=== PATIENT | female | born 1955 | race Caucasian/White ===

== ENCOUNTER 2017-06-01 20:55 | Inpatient (IN) ==
[2017-06-01] MEDS ORDERED: KETOROLAC 30 MG/1 ML VIAL IV STA (21:31)
[2017-06-01] MEDS ORDERED: SULFAMETHOX/TRIMETHOPRIM 800-160 MG TABLET PO STA (21:31)
[2017-06-01] MEDS ORDERED: CLINDAMYCIN INJ 900 MG in PREMIX 1 EACH IV STA (21:31)
--- NOTE | 2017-06-01 21:35 | Emergency Department Note ---
Arrival - Arrival Chief Complaint: Extremity Problem Stated Complaint: diabetic foot hurting red with infection ED Nursing Triage Note: C/O Pain and redness to right foot x 2-3 days. Pt states that she thinks she has an infection due to diabetes in her foot. FSG 300 at time of triage- pt states that her blood sugar is always poorly controlled. Pt just moved here 3 weeks ago and does not have established PCP yet Mode of Arrival: Wheelchair Limitations: No Limitations Source: Patient Time Seen by Provider: 06/01/17 21:30 - History of Present Illness HPI Narrative: This 62-year-old white female diabetic new to the area presents with a 3 day history of redness and tenderness of the volar surface of the right foot associated with elevated blood sugars. Patient denies any areas of specific skin breakdown or ulceration. She does have a small ulceration on the tip of the left great toe however. She denies any chills or fever in association with this episode. She does have a history of both diabetic gastroparesis as well as diabetic neuropathy but has had all toes removed from the right foot in the past. Currently she appears in no acute medical distress. Onset (ago): day(s) (Patient presents 3 days post onset of symptoms) Date of Last Menstrual Period: PM Allergies/Adverse Reactions: Allergies Allergy/AdvReac Type Severity Reaction Status Date / Time No Known Allergies Allergy Verified 06/01/17 21:05 Home Medications: Home Medications Medication Instructions Recorded Confirmed Type Aspirin/Caffein/Dihydrocodeine 1 each PO BID 06/01/17 06/01/17 History [Kjijyts-Rnmi-Msnpwziqvtnxw Cap] Buspirone HCl 10 mg PO BID 06/01/17 06/01/17 History Canagliflozin [Invokana] 300 mg PO DAILY 06/01/17 06/01/17 History Citalopram [CeleXA] 20 mg PO DAILY 06/01/17 06/01/17 History Esomeprazole Magnesium 40 mg PO DAILY 06/01/17 06/01/17 History [Esomeprazole] Insulin Aspart [NovoLOG] 12 unit SUBCUT QAM 06/01/17 06/01/17 History Insulin Aspart [NovoLOG] 14 unit SUBCUT DAILY 06/01/17 06/01/17 History Insulin Aspart [NovoLOG] 16 unit SUBCUT QPM 06/01/17 06/01/17 History Insulin Glargine [Lantus] 46 unit SUBCUT BEDTIME 06/01/17 06/01/17 History Isosorbide Mononitrate 10 mg PO BID 06/01/17 06/01/17 History Levothyroxine Tab [Synthroid Tab] 50 mcg PO DAILY@0700 06/01/17 06/01/17 History Metformin HCl 1,000 mg PO BID 06/01/17 06/01/17 History Methocarbamol Tab [Robaxin Tab] 750 mg PO BID 06/01/17 06/01/17 History Metoclopramide Tab [Reglan Tab] 10 mg PO ACHS 06/01/17 06/01/17 History Pregabalin [Lyrica] 75 mg PO BID 06/01/17 06/01/17 History Rosuvastatin [Crestor] 20 mg PO BEDTIME 06/01/17 06/01/17 History Valsartan [Diovan] 160 mg PO DAILY 06/01/17 06/01/17 History hydroCHLOROthiazide 12.5 mg PO DAILY 06/01/17 06/01/17 History [Hydrochlorothiazide] Review of System - Review of System 12 point system: reviewed and no additional remarkable complaints except as stated - Review of System Constitutional: Present: as per HPI Gastrointestinal: Present: as per HPI Musculoskeletal: Present: as per HPI Skin: Present: as per HPI Endocrine: Present: as per HPI Medical,Surgical,& Family Hx - Medical History Cardio: History of: Hypertension Endocrine: History of: Diabetes Mellitus (IDDM), Dyslipidemia - Social History Smoking Status: Never smoker Frequency of Alcohol Use: None Type of Drug Use: None Exam Physical Examination: GENERAL: Obese white female in no acute distress. HEENT: Normocephalic. No trauma. Moist mucous membranes. EOMI. PERRLA. ENT NML NECK: Supple. No adenopathy. CARDIAC: Regular. No murmurs. Heart 100 CHEST: Clear to auscultation. No respiratory distress. O2 sat 94% ABDOMEN: Soft. Nontender. Active bowel sounds. EXTREMITIES: No trauma. Normal ROM. No pedal edema. Red warm tender volar surface of the right foot with minimal swelling locally SKIN: No diaphoresis. No rash. Small ulceration tip of left great toe with no discharge NEURO: Alert. Neuro intact. No focal deficits. Vital Signs: Vital Signs Temperature 98.9 F 06/01/17 21:11 Pulse Rate 101 H 06/01/17 21:11 Respiratory Rate 16 06/01/17 21:11 Blood Pressure 137/84 06/01/17 21:11 O2 Sat by Pulse Oximetry 94 L 06/01/17 21:11 Course - Reevaluation(s) Reevaluation #1: Advised patient and family of need for hospitalization given her laboratory results and her labile sugars at this time. - Consultations Consultation #1: Discussed with hospitalist service who will admit for further evaluation treatment. Results - Labs CBC & BMP: 06/01/17 21:57 06/01/17 21:57 Labs: I have reviewed the laboratory noted the elevated white blood cell count, blood glucose, and elevated C-reactive protein. - Diagnostic Findings Procedure: X-ray: image reviewed by me, report reviewed by me (Right foot: Absent of toes noted with no evidence of active osteomyelitis.) Disposition Clinical Impression: Right diabetic stump, Left diabetic toe Case discussed with: patient, patient's family Disposition: Still a Patient Condition: Guarded Time of Disposition: 23:24
[2017-06-01] MEDS ORDERED: SULFAMETHOX/TRIMETHOPRIM 800-160 MG TABLET ONE (21:51)
[2017-06-01] MEDS ORDERED: KETOROLAC 30 MG/1 ML VIAL ONE (21:51)
[2017-06-01] MEDS ORDERED: CLINDAMYCIN INJ 50 ML IV ONE (21:51)
[2017-06-01 22:26] LABS: Basophils # 0.1 10*3/uL (0.0-0.2); Basophils % 0.4 % (0.0-0.8); Eosinophils # 0.1 10*3/uL (0.0-0.87); Eosinophils % 0.5 % (0.00-10.9); Hematocrit 37.3 VOL% (35.7-47.0); Hemoglobin 12.9 GM/DL (12.0-16.0); Immature Granulocytes % 0.5 %; Immature Granulocytes Absolute 0.07 #; Lymphocytes # 2.2 10*3/uL (1.4-4.0); Lymphocytes % 13.9 % (21.3-54.2); Mean Corpuscular HGB Conc 34.6 GM/DL (32-36); Mean Corpuscular Hemoglobin 31 PG (27-34); Mean Corpuscular Volume 90.8 FL (87-102); Mean Platelet Volume 10.1 FL (9.6-12.0); Monocytes # 1.4 10*3/uL (0.11-0.8); Monocytes % 8.9 % (1.7-12.7); Neutrophils # 11.8 10*3/uL (1.4-7.4); Neutrophils % 75.8 % (38.7-73.9); Platelet Count 234 T/CUMM (130-400); Red Blood Count 4.11 MC/CUMM (3.8-5.5); Red Cell Distribution Width 12.9 % (9.3-17.3); White Blood Count 15.5 T/CUMM (4-12)
[2017-06-01 22:47] LABS: PT Patient Result 10.7 SECS
[2017-06-01 22:50] LABS: Albumin 3.5 G/DL (3.4-5.0); Bilirubin,Total 0.4 MG/DL (0.2-1.0); Calcium 9.7 MG/DL (8.5-10.1); Potassium 4.4 MMOL/L (3.5-5.1); Total Protein 7.1 G/DL (6.4-8.3)
[2017-06-01] MEDS ORDERED: ONDANSETRON 4 MG/2 ML VIAL IV PRN (23:15)
[2017-06-01] MEDS ORDERED: GLUCAGON 1 MG VIAL IM PRN (23:15)
[2017-06-01] MEDS ORDERED: ACETAMINOPHEN 325 MG TABLET PO PRN (23:15)
[2017-06-01] MEDS ORDERED: DEXTROSE 50% 25 GM/50 ML SYRINGE IV PRN (23:15)
[2017-06-01 23:32] LABS: Sedimentation Rate-Westergren 75 MM/HR (0-30)
--- NOTE | 2017-06-01 23:56 | Hospitalist History & Physical ---
Assessment and Plan (1) Cellulitis Status: Acute Current Visit: Yes (2) Diabetes Status: Acute Current Visit: Yes (3) Hypertension Status: Acute Current Visit: Yes (4) Leukocytosis Status: Acute Assessment and plan: For this patient will go to admit her to our service. We will continue home meds as appropriate started on IV antibiotics. Will consult wound care to evaluate her. Monitor her sugars before meals and at bedtime. Continue her Lantus will add sliding scale also. Check an A1c on her. Patient needs referral to a physician upon discharge. She is new to the area and has been here approximately 3 weeks. Current Visit: Yes History of Present Illness Chief complaint: Cellulitis History of present illness: Ms. Bell is a 62 year old female with past medical history of diabetes, TIA, coronary artery disease, increased cholesterol, reflux, hypertension and legal blindness who was in her normal state of health until the past couple days. Patient notes that her left foot was getting puffy yesterday. Today she noticed that it had turned red. She has had cellulitis before and got concerned that that is always occurring now she came to our hospital for further evaluation. This occurred on her right foot for which she has no natural toes. She denies any fever or chills associated with this. She is in no acute distress and I was consulted to admit her to the emergency room. Home Medications Medication Instructions Recorded Confirmed Type Aspirin/Caffein/Dihydrocodeine 1 each PO BID 06/01/17 06/01/17 History [Iwpduqe-Ctrw-Opfjdqdjzdfhj Cap] Buspirone HCl 10 mg PO BID 06/01/17 06/01/17 History Canagliflozin [Invokana] 300 mg PO DAILY 06/01/17 06/01/17 History Citalopram [CeleXA] 20 mg PO DAILY 06/01/17 06/01/17 History Esomeprazole Magnesium 40 mg PO DAILY 06/01/17 06/01/17 History [Esomeprazole] Insulin Aspart [NovoLOG] 12 unit SUBCUT QAM 06/01/17 06/01/17 History Insulin Aspart [NovoLOG] 14 unit SUBCUT DAILY 06/01/17 06/01/17 History Insulin Aspart [NovoLOG] 16 unit SUBCUT QPM 06/01/17 06/01/17 History Insulin Glargine [Lantus] 46 unit SUBCUT BEDTIME 06/01/17 06/01/17 History Isosorbide Mononitrate 10 mg PO BID 06/01/17 06/01/17 History Levothyroxine Tab [Synthroid Tab] 50 mcg PO DAILY@0700 06/01/17 06/01/17 History Metformin HCl 1,000 mg PO BID 06/01/17 06/01/17 History Methocarbamol Tab [Robaxin Tab] 750 mg PO BID 06/01/17 06/01/17 History Metoclopramide Tab [Reglan Tab] 10 mg PO ACHS 06/01/17 06/01/17 History Pregabalin [Lyrica] 75 mg PO BID 06/01/17 06/01/17 History Rosuvastatin [Crestor] 20 mg PO BEDTIME 06/01/17 06/01/17 History Valsartan [Diovan] 160 mg PO DAILY 06/01/17 06/01/17 History hydroCHLOROthiazide 12.5 mg PO DAILY 06/01/17 06/01/17 History [Hydrochlorothiazide] Allergies Allergy/AdvReac Type Severity Reaction Status Date / Time No Known Allergies Allergy Verified 06/01/17 21:05 Medical,Surgical,& Family Hx - Medical History Cardio: History of: Hypertension Endocrine: History of: Diabetes Mellitus (IDDM), Dyslipidemia - Surgical History Orthopedic Surgeries: Surgical HX of;: Orthopedic Surgery - Family History Family History: Reports;: Family Cancer, Family Diabetes, Family Heart Disease, Family Hypertension, Family Stroke - Social History Smoking Status: Never smoker Frequency of Alcohol Use: None Type of Drug Use: None 12 point system: reviewed and no additional remarkable complaints except as stated Exam - Constitutional Vitals: Period Temp Pulse Resp BP Sys/Holcomb Pulse Ox Last 24 Hr 98.9 F 98-101 16-20 136-137/72-84 90-94 General appearance: normal weight - Head Head exam: Present: normal inspection - Eye Eye exam: Present: EOMI, other (Patient is legally blind) Pupils: Present: KAREN - ENT ENT exam: Present: normal exam - Neck Neck exam: Present: normal inspection - Respiratory Respiratory exam: Present: clear to auscultation bilaterally - Cardiovascular Cardiovascular exam: Present: regular rate and rhythm - GI/Abdominal GI/Abdominal exam: Present: normal bowel sounds - Extremities Exam Extremities exam: Present: other (Patient's right foot is erythematous consistent with cellulitis. It is tender with some swelling. There is some ulceration on her left great toe noted.) - Back Exam Back exam: Present: normal inspection - Neurological Exam Neurological exam: Present: alert, oriented X3 - Psychiatric Psychiatric exam: Present: normal affect, normal mood - Skin Skin exam: Present: erythema Results - Labs CBC & BMP: 06/01/17 21:57 06/01/17 21:57
[2017-06-02] MEDS: CEFTAROLINE 600 MG in SODIUM CHLORIDE 0.9% 100 ML IV SCH ×2 (00:55→12:12)
[2017-06-02] MEDS ORDERED: INSULIN REGULAR 100 UNIT/ML SUBCUT ONE (01:11)
[2017-06-02 02:40] LABS: Barbiturates Screen,Urine Negative (Negative); Benzodiazepines Screen,Urine Negative (Negative); Cannabinoid Screen,Urine Negative (Negative); Opiate Screen,Urine Negative (Negative); Phencyclidine Screen,Urine Negative (Negative)
[2017-06-02 05:16] LABS: Basophils % 0.3 % (0.0-0.8); Eosinophils # 0.1 10*3/uL (0.0-0.87); Eosinophils % 0.6 % (0.00-10.9); Hematocrit 33.6 VOL% (35.7-47.0); Hemoglobin 11.4 GM/DL (12.0-16.0); Immature Granulocytes % 0.3 %; Immature Granulocytes Absolute 0.04 #; Lymphocytes # 2.6 10*3/uL (1.4-4.0); Lymphocytes % 21.1 % (21.3-54.2); Mean Corpuscular HGB Conc 33.9 GM/DL (32-36); Mean Corpuscular Hemoglobin 31 PG (27-34); Mean Corpuscular Volume 90.8 FL (87-102); Monocytes # 1.2 10*3/uL (0.11-0.8); Monocytes % 9.6 % (1.7-12.7); Neutrophils # 8.4 10*3/uL (1.4-7.4); Neutrophils % 68.1 % (38.7-73.9); Platelet Count 211 T/CUMM (130-400); White Blood Count 12.4 T/CUMM (4-12)
[2017-06-02 05:59] LABS: Albumin 2.8 G/DL (3.4-5.0); Bilirubin,Total 0.5 MG/DL (0.2-1.0); Calcium 9.6 MG/DL (8.5-10.1); Osmolality,Calculated 293.4 MOS/KG (273-304); Potassium 3.7 MMOL/L (3.5-5.1); Total Protein 6.1 G/DL (6.4-8.3)
[2017-06-02] MEDS: LEVOTHYROXINE 50 MCG TABLET PO SCH (06:04)
--- NOTE | 2017-06-02 08:09 | XRay Report ---
Exam: XR foot 3V BI Date: 06/01/2017 9:32 PM Comparison: None Indication: Foot pain Technique:[AP, lateral oblique, and lateral bilateral feet] Findings: Soft tissue swelling especially in the right foot with prior amputation at the level of the MTP joints. Chronic deformity of the remaining distal second and third metatarsals with surgical bone loss. Sclerosis with osteophytes including calcaneal osteophyte at plantar fascial insertion. In the left foot, postoperative findings are noted medially with metallic compression plate and screws with fusion of the first metatarsal and the medial tarsal bones. The left toes are bent. No acute fracture or significant periosteal thickening. Impression: Soft tissue swelling especially in the right foot with prior amputation of the toes and additional postoperative findings in the medial left foot. Osteopenia with degenerative changes. No acute fracture or significant periosteal thickening. Left claw toe deformity. PROCEDURE INTERPRETED AT [facility] DEPARTMENT OF RADIOLOGY Final Report Signed by: Dr. Moon Hines
[2017-06-02] MEDS ORDERED: PANTOPRAZOLE 40 MG TABLET PO SCH (09:00)
[2017-06-02] MEDS: metFORMIN 500 MG TABLET PO SCH ×2 (09:01→21:15)
[2017-06-02] MEDS: hydroCHLOROthiazide 12.5 MG CAPSULE PO SCH (09:01)
[2017-06-02] MEDS: METHOCARBAMOL 750 MG TABLET PO SCH ×2 (09:01→21:15)
[2017-06-02] MEDS: METOCLOPRAMIDE 10 MG TABLET PO SCH ×4 (09:01→21:15)
[2017-06-02] MEDS: CITALOPRAM 20 MG TABLET PO SCH (09:01)
[2017-06-02] MEDS: PREGABALIN 75 MG CAPSULE PO SCH ×2 (09:01→21:14)
[2017-06-02] MEDS: PANTOPRAZOLE 40 MG TABLET PO SCH (09:01)
[2017-06-02] MEDS: INSULIN REGULAR 100 UNIT/ML SUBCUT SCH ×4 (09:02→21:14)
[2017-06-02] MEDS: VALSARTAN 160 MG TABLET PO SCH (09:02)
[2017-06-02] MEDS: busPIRone 10 MG TABLET PO SCH ×2 (09:02→21:15)
[2017-06-02] MEDS: ENOXAPARIN 40 MG/0.4 ML SYRINGE SUBCUT SCH (09:02)
[2017-06-02] MEDS: ISOSORBIDE MONONITRATE 20 MG TABLET PO SCH ×2 (09:02→21:15)
--- NOTE | 2017-06-02 13:59 | Hospitalist Progress Note ---
Assessment and Plan (1) Cellulitis Status: Acute Assessment and plan: Blood cultures 2 pending, continue Teflaro, most likely strep, will need 3 days of IV antibiotic Current Visit: Yes (2) Hypothyroidism Status: Acute Assessment and plan: TSH, continue levothyroxine Current Visit: Yes (3) Gastroparesis Status: Acute Assessment and plan: Continue Reglan Current Visit: Yes (4) Diabetes Status: Acute Assessment and plan: Continue Metformin and Lantus Current Visit: Yes (5) Hypertension Status: Acute Assessment and plan: Continue hydrochlorothiazide, isosorbide mononitrate and Diovan Current Visit: Yes Hospitalist: Subjective Interval history: Patient's got right lower extremity cellulitis she has had amputation of all those toes. Patient may have had a bite there and subsequently became the source of her infection. The infection was rapid within 1 day most likely consistent with strep. Exam - Constitutional Vitals: Period Temp Pulse Resp BP Sys/Holcomb Pulse Ox Last 24 Hr 96.8 F-98.9 F 82-101 16-20 99-156/51-84 89-95 Exam: Heart Rate-[RRR] Lungs-[CTAB] GI-[+bs soft, NT] Ext-[RLE erythema and warm extending from foot mid way up tibia ] Neuro [Motor 5/5], [alert and oriented times 3] psych [normal mood and affect] General [no acute distress] Results - Labs CBC & BMP: 06/02/17 05:00 06/02/17 05:00 Lab Results: I have reviewed the past 24 hour labs - Diagnostic Findings Procedure: X-ray: report reviewed by me (Soft tissue swelling of right foot)
--- NOTE | 2017-06-02 15:42 | XRay Report ---
XR chest 2V Date: 06/02/2017 2:01 PM History: Shortness of breath Comparison: None Technique: PA and lateral chest Findings: The heart is at the upper limits normal in size. Calcified granulomata/nodes with minimal atelectasis. Minimal relative elevation of the right hemidiaphragm. Unremarkable mediastinum with degenerative changes. Impression: Old healed granulomatous disease with minimal atelectasis and relative elevation right hemidiaphragm. PROCEDURE INTERPRETED AT [facility] DEPARTMENT OF RADIOLOGY Final Report Signed by: Dr. Moon Hines
[2017-06-02] MEDS: INSULIN GLARGINE 100 UNIT/ML SUBCUT SCH (21:14)
[2017-06-02] MEDS: ROSUVASTATIN 20 MG TABLET PO SCH (21:15)
[2017-06-03] MEDS: CEFTAROLINE 600 MG in SODIUM CHLORIDE 0.9% 50 ML IV SCH ×2 (00:09→12:08)
[2017-06-03 06:00] LABS: Basophils # 0.1 10*3/uL (0.0-0.2); Basophils % 0.5 % (0.0-0.8); Eosinophils # 0.2 10*3/uL (0.0-0.87); Eosinophils % 2.1 % (0.00-10.9); Hematocrit 34.3 VOL% (35.7-47.0); Hemoglobin 11.6 GM/DL (12.0-16.0); Immature Granulocytes % 0.5 %; Immature Granulocytes Absolute 0.05 #; Lymphocytes % 21.8 % (21.3-54.2); Mean Corpuscular HGB Conc 33.8 GM/DL (32-36); Mean Corpuscular Hemoglobin 31 PG (27-34); Mean Corpuscular Volume 91.2 FL (87-102); Mean Platelet Volume 10.1 FL (9.6-12.0); Monocytes # 1.1 10*3/uL (0.11-0.8); Monocytes % 11.7 % (1.7-12.7); Neutrophils # 5.8 10*3/uL (1.4-7.4); Neutrophils % 63.4 % (38.7-73.9); Platelet Count 222 T/CUMM (130-400); Red Blood Count 3.76 MC/CUMM (3.8-5.5); Red Cell Distribution Width 12.9 % (9.3-17.3); White Blood Count 9.1 T/CUMM (4-12)
[2017-06-03 06:30] LABS: Calcium 9.1 MG/DL (8.5-10.1); Osmolality,Calculated 285.5 MOS/KG (273-304); Potassium 4.1 MMOL/L (3.5-5.1)
[2017-06-03] MEDS: LEVOTHYROXINE 50 MCG TABLET PO SCH (06:52)
[2017-06-03] MEDS: INSULIN REGULAR 100 UNIT/ML SUBCUT SCH ×4 (08:46→21:06)
[2017-06-03] MEDS: VALSARTAN 160 MG TABLET PO SCH (08:48)
[2017-06-03] MEDS: CITALOPRAM 20 MG TABLET PO SCH (08:49)
[2017-06-03] MEDS: metFORMIN 500 MG TABLET PO SCH ×2 (08:49→21:07)
[2017-06-03] MEDS: PREGABALIN 75 MG CAPSULE PO SCH ×2 (08:49→21:07)
[2017-06-03] MEDS: busPIRone 10 MG TABLET PO SCH ×2 (08:49→21:07)
[2017-06-03] MEDS: METOCLOPRAMIDE 10 MG TABLET PO SCH ×4 (08:49→21:07)
[2017-06-03] MEDS: ISOSORBIDE MONONITRATE 20 MG TABLET PO SCH ×2 (08:49→21:07)
[2017-06-03] MEDS: METHOCARBAMOL 750 MG TABLET PO SCH ×2 (08:49→21:07)
[2017-06-03] MEDS: ENOXAPARIN 40 MG/0.4 ML SYRINGE SUBCUT SCH (08:50)
[2017-06-03] MEDS: PANTOPRAZOLE 40 MG TABLET PO SCH (08:50)
[2017-06-03] MEDS: hydroCHLOROthiazide 12.5 MG CAPSULE PO SCH (08:50)
--- NOTE | 2017-06-03 17:29 | Hospitalist Progress Note ---
Assessment and Plan (1) Cellulitis Status: Acute Assessment and plan: Blood cultures 2 pending, continue Teflaro Current Visit: Yes (2) Hypothyroidism Status: Acute Assessment and plan: TSH normal, continue levothyroxine Current Visit: Yes (3) Gastroparesis Status: Acute Assessment and plan: Continue Reglan Current Visit: Yes (4) Diabetes Status: Acute Assessment and plan: Hgb a1c 9.3, Continue Metformin and Lantus and mealtime coverage Current Visit: Yes (5) Hypertension Status: Acute Assessment and plan: Controlled, cont hydrochlorothiazide, isosorbide mononitrate and Diovan Current Visit: Yes Hospitalist: Subjective Interval history: Improving cellulitis in the right lower extremity improving. Exam - Constitutional Vitals: Period Temp Pulse Resp BP Sys/Holcomb Pulse Ox Last 24 Hr 96.6 F-98.9 F 82-97 18-21 96-115/50-72 89-95 Exam: Heart Rate-[RRR] Lungs-[CTAB] GI-[+bs soft, NT] Ext-[RLE erythema and warm improving ] Neuro [Motor 5/5], [alert and oriented times 3] psych [normal mood and affect] General [no acute distress] Results - Labs CBC & BMP: 06/03/17 05:36 06/03/17 05:35 Lab Results: I have reviewed the past 24 hour labs Labs: blood cx pending - Diagnostic Findings Procedure: Chest x-ray: report reviewed by me (negative ) Specialty Discharge - Follow Up or Referrals Follow up with: Kiah Bruno MD [Physician] - (please establish as PCP)
[2017-06-03] MEDS ORDERED: INSULIN ASPART 7 UNIT SUBCUT SCH (19:00)
[2017-06-03] MEDS: INSULIN GLARGINE 100 UNIT/ML SUBCUT SCH (21:06)
[2017-06-03] MEDS: ROSUVASTATIN 20 MG TABLET PO SCH (21:07)
[2017-06-04] MEDS: CEFTAROLINE 600 MG in SODIUM CHLORIDE 0.9% 50 ML IV SCH ×2 (00:44→12:30)
[2017-06-04 06:02] LABS: Basophils # 0.1 10*3/uL (0.0-0.2); Basophils % 0.6 % (0.0-0.8); Eosinophils # 0.2 10*3/uL (0.0-0.87); Eosinophils % 2.9 % (0.00-10.9); Hematocrit 35.5 VOL% (35.7-47.0); Hemoglobin 12.1 GM/DL (12.0-16.0); Immature Granulocytes % 0.5 %; Immature Granulocytes Absolute 0.04 #; Lymphocytes # 2.7 10*3/uL (1.4-4.0); Lymphocytes % 34.5 % (21.3-54.2); Mean Corpuscular HGB Conc 34.1 GM/DL (32-36); Mean Corpuscular Hemoglobin 31 PG (27-34); Mean Corpuscular Volume 90.8 FL (87-102); Mean Platelet Volume 10.3 FL (9.6-12.0); Monocytes # 0.9 10*3/uL (0.11-0.8); Monocytes % 11.7 % (1.7-12.7); Neutrophils # 3.9 10*3/uL (1.4-7.4); Neutrophils % 49.8 % (38.7-73.9); Platelet Count 254 T/CUMM (130-400); Red Blood Count 3.91 MC/CUMM (3.8-5.5); Red Cell Distribution Width 12.5 % (9.3-17.3); White Blood Count 7.8 T/CUMM (4-12)
[2017-06-04] MEDS: LEVOTHYROXINE 50 MCG TABLET PO SCH (06:33)
[2017-06-04] MEDS: INSULIN REGULAR 100 UNIT/ML SUBCUT SCH ×4 (07:48→21:52)
[2017-06-04] MEDS ORDERED: INSULIN ASPART 7 UNIT SUBCUT SCH ×2 (09:00)
[2017-06-04] MEDS: hydroCHLOROthiazide 12.5 MG CAPSULE PO SCH (09:25)
[2017-06-04] MEDS: METHOCARBAMOL 750 MG TABLET PO SCH ×2 (09:25→21:51)
[2017-06-04] MEDS: CITALOPRAM 20 MG TABLET PO SCH (09:25)
[2017-06-04] MEDS: METOCLOPRAMIDE 10 MG TABLET PO SCH ×4 (09:25→21:52)
[2017-06-04] MEDS: metFORMIN 500 MG TABLET PO SCH ×2 (09:25→21:52)
[2017-06-04] MEDS: PREGABALIN 75 MG CAPSULE PO SCH ×2 (09:26→21:51)
[2017-06-04] MEDS: VALSARTAN 160 MG TABLET PO SCH (09:26)
[2017-06-04] MEDS: busPIRone 10 MG TABLET PO SCH ×2 (09:26→21:52)
[2017-06-04] MEDS: ENOXAPARIN 40 MG/0.4 ML SYRINGE SUBCUT SCH (09:26)
[2017-06-04] MEDS: ISOSORBIDE MONONITRATE 20 MG TABLET PO SCH ×2 (09:26→21:51)
[2017-06-04] MEDS: PANTOPRAZOLE 40 MG TABLET PO SCH (09:26)
--- NOTE | 2017-06-04 16:02 | Hospitalist Progress Note ---
Assessment and Plan (1) Cellulitis Status: Acute Assessment and plan: Blood cultures 2 no growth, continue Teflaro Current Visit: Yes (2) Hypothyroidism Status: Acute Assessment and plan: TSH normal, continue levothyroxine Current Visit: Yes (3) Gastroparesis Status: Acute Assessment and plan: Continue Reglan Current Visit: Yes (4) Diabetes Status: Acute Assessment and plan: Hgb a1c 9.3, still not controlled will increase Lantus and mealtime coverage Current Visit: Yes (5) Hypertension Status: Acute Assessment and plan: Controlled, cont hydrochlorothiazide, isosorbide mononitrate and Diovan Current Visit: Yes Hospitalist: Subjective Interval history: Cellulitis is rapidly improving home tomorrow. Exam - Constitutional Vitals: Period Temp Pulse Resp BP Sys/Holcomb Pulse Ox Last 24 Hr 97.5 F-97.9 F 74-88 15-20 98-133/58-66 91-96 Exam: Heart Rate-[RRR] Lungs-[CTAB] GI-[+bs soft, NT] Ext-[RLE resolving rapidly Neuro [Motor 5/5], [alert and oriented times 3] psych [normal mood and affect] General [no acute distress] Results - Labs CBC & BMP: 06/04/17 04:16 06/03/17 05:35 Lab Results: I have reviewed the past 24 hour labs Labs: Blood cultures 2 negative no growth Specialty Discharge - Follow Up or Referrals Follow up with: Kiah Bruno MD [Physician] - (please establish as PCP)
[2017-06-04] MEDS ORDERED: INSULIN GLARGINE 100 UNIT/ML SUBCUT SCH (16:04)
[2017-06-04] MEDS ORDERED: INSULIN ASPART 12 UNIT SUBCUT SCH ×3 (16:04)
[2017-06-04] MEDS: ROSUVASTATIN 20 MG TABLET PO SCH (21:51)
[2017-06-05] MEDS: CEFTAROLINE 600 MG in SODIUM CHLORIDE 0.9% 50 ML IV SCH (00:25)
[2017-06-05 06:17] LABS: Basophils # 0.1 10*3/uL (0.0-0.2); Basophils % 0.7 % (0.0-0.8); Eosinophils # 0.3 10*3/uL (0.0-0.87); Eosinophils % 3.1 % (0.00-10.9); Hematocrit 34.5 VOL% (35.7-47.0); Hemoglobin 11.8 GM/DL (12.0-16.0); Immature Granulocytes Absolute 0.09 #; Lymphocytes # 3.1 10*3/uL (1.4-4.0); Lymphocytes % 36.1 % (21.3-54.2); Mean Corpuscular HGB Conc 34.2 GM/DL (32-36); Mean Corpuscular Hemoglobin 31 PG (27-34); Mean Corpuscular Volume 90.8 FL (87-102); Mean Platelet Volume 10.1 FL (9.6-12.0); Monocytes % 11.8 % (1.7-12.7); Neutrophils # 4.1 10*3/uL (1.4-7.4); Neutrophils % 47.3 % (38.7-73.9); Platelet Count 269 T/CUMM (130-400); Red Cell Distribution Width 12.5 % (9.3-17.3); White Blood Count 8.7 T/CUMM (4-12)
[2017-06-05] MEDS: LEVOTHYROXINE 50 MCG TABLET PO SCH (06:17)
[2017-06-05] MEDS: [UNRECOGNIZED DRUG - OTHER] PO SCH ×4 (07:20→08:52)
[2017-06-05] MEDS: ASPIRIN PO SCH ×4 (07:20→08:52)
[2017-06-05] MEDS: CAFFEINE PO SCH ×4 (07:20→08:52)
[2017-06-05 08:06] VITALS: BP 130/83
[2017-06-05] MEDS: hydroCHLOROthiazide 12.5 MG CAPSULE PO SCH (08:49)
[2017-06-05] MEDS: PREGABALIN 75 MG CAPSULE PO SCH (08:49)
[2017-06-05] MEDS: METOCLOPRAMIDE 10 MG TABLET PO SCH (08:49)
[2017-06-05] MEDS: ISOSORBIDE MONONITRATE 20 MG TABLET PO SCH (08:49)
[2017-06-05] MEDS: PANTOPRAZOLE 40 MG TABLET PO SCH (08:49)
[2017-06-05] MEDS: busPIRone 10 MG TABLET PO SCH (08:49)
[2017-06-05] MEDS: CITALOPRAM 20 MG TABLET PO SCH (08:49)
[2017-06-05] MEDS: METHOCARBAMOL 750 MG TABLET PO SCH (08:49)
[2017-06-05] MEDS: metFORMIN 500 MG TABLET PO SCH (08:49)
[2017-06-05] MEDS: VALSARTAN 160 MG TABLET PO SCH (08:49)
[2017-06-05] MEDS: ENOXAPARIN 40 MG/0.4 ML SYRINGE SUBCUT SCH (08:50)
[2017-06-05] MEDS: INSULIN REGULAR 100 UNIT/ML SUBCUT SCH (08:51)
--- NOTE | 2017-06-05 11:35 | Discharge Summary ---
Hospital Course - Hospital Course Hospital Course: 62-year-old female with history of diabetes, TIA, hypertension and coronary disease presents with right lower extremity cellulitis. Patient has had amputation of her toes on her right foot and was noted to have some blisters. All of a sudden she developed erythema of her foot with radiation of that erythema up her right leg. Patient was placed on Lateral IV. Her white count on admission was 15.5 and his returned to normal at 8.7. Her erythema has completely resolved. Blood cultures 2 negative no growth. Chest x-ray was unremarkable. Patient does have diabetes and hypertension. Her hypertension is fairly well controlled. Her blood sugars are not well controlled with hemoglobin A1c of 9.3. She takes a lot of insulin at home and we will resume those normal doses. She will be discharged today on Augmentin for 10 more days. Patient does not have a primary care physician but I will have her follow with Dr. Bruno as scheduled. - Time spent with patient Time with patient DS: Greater than 30 minutes (45 min) Diagnosis - Discharge Diagnosis (1) Cellulitis Status: Acute (2) Hypothyroidism Status: Acute (3) Gastroparesis Status: Acute (4) Diabetes Status: Acute (5) Hypertension Status: Acute Specialty Discharge - Follow Up or Referrals Follow up with: Kiah Bruno MD [Physician] - (please establish as PCP) Discharge Plan - Discharge Data Disposition: Disch To Home/Self Care Condition at Discharge: Stable Discharge Diet: diabetic diet Activity: resume usual activities as tolerated Hygiene: no restrictions Weight Bearing at Discharge: full weight bearing - Discharge Medications New Amoxicillin/Clav Tab [Augmentin Tab] 875 mg PO BID #20 tablet Continue Rosuvastatin [Crestor] 20 mg PO BEDTIME Esomeprazole Magnesium [Esomeprazole] 40 mg PO DAILY Aspirin/Caffein/Dihydrocodeine [Zutyago-Hbha-Tkrqjeqqcrsbm Cap] 1 each PO BID hydroCHLOROthiazide [Hydrochlorothiazide] 12.5 mg PO DAILY Levothyroxine Tab [Synthroid Tab] 50 mcg PO DAILY@0700 Canagliflozin [Invokana] 300 mg PO DAILY Metoclopramide Tab [Reglan Tab] 10 mg PO ACHS Citalopram [CeleXA] 20 mg PO DAILY Buspirone HCl 10 mg PO BID Metformin HCl 1,000 mg PO BID Isosorbide Mononitrate 10 mg PO BID Insulin Aspart [NovoLOG] 12 unit SUBCUT QAM Insulin Aspart [NovoLOG] 16 unit SUBCUT QPM Insulin Glargine [Lantus] 46 unit SUBCUT BEDTIME Pregabalin [Lyrica] 75 mg PO BID #60 tablet Methocarbamol Tab [Robaxin Tab] 750 mg PO BID Valsartan [Diovan] 160 mg PO DAILY Insulin Aspart [NovoLOG] 14 unit SUBCUT DAILY Ropinirole HCl 1 mg PO BEDTIME - Follow Up or Referral Follow Up: Kiah Bruno MD [Physician] - (please establish as PCP) - Forms/Instructions Exam - Constitutional Vitals: Period Temp Pulse Resp BP Sys/Holcomb Pulse Ox Last 24 Hr 97.4 F-98.3 F 67-85 18-20 95-152/53-83 91-94 General appearance: normal weight, no acute distress - Eye Pupils: Present: KAREN, normal accommodation - Respiratory Respiratory exam: Present: clear to auscultation bilaterally. Absent: rhonchi, wheezes - Cardiovascular Cardiovascular exam: Present: regular rate and rhythm. Absent: systolic murmur - GI/Abdominal GI/Abdominal exam: Present: normal bowel sounds, soft. Absent: tenderness - Extremities Exam Extremities exam: Present: normal inspection, normal capillary refill Discharge Results Procedures and tests throughout hospitalization: Pending Orders 06/02/17 14:23 Blood Culture Stat Labs on day of discharge: Labs from last 24 hours 06/05/17 06/05/17 06/04/17 07:32 05:27 20:04 WBC 8.7 RBC 3.80 Hgb 11.8 L Hct 34.5 L MCV 90.8 MCH 31 MCHC 34.2 RDW 12.5 Plt Count 269 MPV 10.1 Neut % (Auto) 47.3 Lymph % (Auto) 36.1 [place] % (Auto) 11.8 Eos % (Auto) 3.1 Baso % (Auto) 0.7 Neut # (Auto) 4.1 Lymph # (Auto) 3.1 [place] # (Auto) 1.0 H Eos # (Auto) 0.3 Baso # (Auto) 0.1 Immature Gran % 1.0 Nucleated RBC % 0.0 Immature Gran # 0.09 Nucleated RBCs # 0.00 Immature Plt Fraction 0.0 POC Glucose 174 H 395 H 06/04/17 06/04/17 15:29 11:47 WBC RBC Hgb Hct MCV MCH MCHC RDW Plt Count MPV Neut % (Auto) Lymph % (Auto) [place] % (Auto) Eos % (Auto) Baso % (Auto) Neut # (Auto) Lymph # (Auto) [place] # (Auto) Eos # (Auto) Baso # (Auto) Immature Gran % Nucleated RBC % Immature Gran # Nucleated RBCs # Immature Plt Fraction POC Glucose 311 H 249 H Preliminary micro results at discharge 06/02/17 14:23 Blood Culture - Preliminary Blood No growth at 1 day 06/02/17 14:23 Blood Culture - Preliminary Blood No growth at 1 day DS: Provider Date of admission: 06/01/17 23:16 Primary care physician: . No PCP Attending physician on admission: Natasha Carrizales MD Consults: 06/01/17 23:21 Consult to Wound Care [facility] [CONS] Routine Reason for Wound Care: Wound Care Management Discharging clinician: Natasha Carrizales MD
== END 2017-06-05 12:37 | disposition home or self-care (01) | DRG 638 ==
LOC: N.ED 20:55 → N.EDINP 23:16 → N.5E 23:41
PROVIDERS: ADMIT Internal Medicine; ATTEND Internal Medicine

== ENCOUNTER 2018-07-06 10:20 | Inpatient (IN) ==
[2018-07-06] MEDS ORDERED: ONDANSETRON 4 MG/2 ML VIAL IV STA (11:29)
[2018-07-06] MEDS ORDERED: HYDROmorphone 2 MG/1 ML VIAL IV STA (11:29)
[2018-07-06 11:44] LABS: Calcium 9.3 MG/DL (8.5-10.1); Osmolality,Calculated 268.8 MOS/KG (273-304); Potassium 2.6 MMOL/L (3.5-5.1); Uric Acid 6.9 MG/DL (2.6-6.0)
[2018-07-06] MEDS ORDERED: cefTRIAXone 1,000 MG in SODIUM CHLORIDE 0.9% 100 ML IV STA (12:36)
[2018-07-06] MEDS ORDERED: VANCOMYCIN INJ 1,500 MG in SODIUM CHLORIDE 0.9% 500 ML IV STA (12:36)
[2018-07-06] MEDS ORDERED: POTASSIUM CHLORIDE 20 MEQ TABLET PO STA (12:50)
[2018-07-06 12:55] LABS: Cholesterol Crystals None Seen /LPF
[2018-07-06 13:22] LABS: Neutrophils,Synovial Fluid 99 %
[2018-07-06] MEDS ORDERED: INSULIN LISPRO 100 UNIT/ML SUBCUT PRN (14:14)
[2018-07-06] MEDS ORDERED: NITROGLYCERIN SL 0.4 MG TABLET SL PRN (14:14)
[2018-07-06] MEDS ORDERED: GLUCAGON 1 MG VIAL IM PRN (14:19)
[2018-07-06] MEDS ORDERED: DEXTROSE 50% 25 GM/50 ML VIAL IV PRN (14:19)
[2018-07-06] MEDS ORDERED: VANCOMYCIN INJ 1,000 MG in SODIUM CHLORIDE 0.9% 250 ML IV SCH (15:00)
[2018-07-06] MEDS: INSULIN REGULAR 100 UNIT/ML SUBCUT SCH ×2 (16:30→21:35)
[2018-07-06] MEDS: SODIUM CHLORIDE 0.9% 1,000 ML IV SCH (17:02)
[2018-07-06] MEDS ORDERED: ZALEPLON 5 MG CAPSULE PO PRN (18:10)
[2018-07-06] MEDS: POTASSIUM CHLORIDE 20 MEQ TABLET PO PRN ×3 (19:05→23:37)
[2018-07-06] MEDS ORDERED: ENOXAPARIN 40 MG/0.4 ML SYRINGE SUBCUT SCH (21:00)
[2018-07-06] MEDS: HYDROmorphone 2 MG/1 ML VIAL IV PRN (21:29)
[2018-07-06 21:30] LABS: Calcium 9.2 MG/DL (8.5-10.1); Osmolality,Calculated 274.1 MOS/KG (273-304); Potassium 2.7 MMOL/L (3.5-5.1)
[2018-07-06] MEDS: ISOSORBIDE MONONITRATE 20 MG TABLET PO SCH (21:31)
[2018-07-06] MEDS: rOPINIRole 1 MG TABLET PO SCH (21:31)
[2018-07-06] MEDS: tiZANidine 4 MG TABLET PO SCH (21:31)
[2018-07-06] MEDS: busPIRone 10 MG TABLET PO SCH (21:31)
[2018-07-06] MEDS: PREGABALIN 75 MG CAPSULE PO SCH (21:31)
[2018-07-06] MEDS: ROSUVASTATIN 20 MG TABLET PO SCH (21:31)
[2018-07-06] MEDS: METOPROLOL TARTRATE 25 MG TABLET PO SCH (21:31)
[2018-07-06] MEDS: DIPYRIDAMOLE/ASPIRIN 200-25 MG CAPSULE PO SCH (21:32)
[2018-07-06] MEDS: INSULIN GLARGINE 100 UNIT/ML SUBCUT SCH (21:35)
[2018-07-07] MEDS: POTASSIUM CHLORIDE 20 MEQ TABLET PO PRN (01:33)
[2018-07-07] MEDS: HYDROmorphone 2 MG/1 ML VIAL IV PRN (03:38)
[2018-07-07 04:53] LABS: Basophils % 0.3 % (0.0-0.8); Eosinophils # 0.1 10*3/uL (0.0-0.87); Eosinophils % 0.4 % (0.00-10.9); Hematocrit 28.5 VOL% (35.7-47.0); Hemoglobin 9.5 GM/DL (12.0-16.0); Immature Granulocytes % 1.6 %; Immature Granulocytes Absolute 0.23 #; Lymphocytes # 1.6 10*3/uL (1.4-4.0); Lymphocytes % 11.3 % (21.3-54.2); Mean Corpuscular HGB Conc 33.3 GM/DL (32-36); Mean Corpuscular Hemoglobin 29 PG (27-34); Mean Corpuscular Volume 85.8 FL (87-102); Mean Platelet Volume 9.1 FL (9.6-12.0); Monocytes # 1.4 10*3/uL (0.11-0.8); Monocytes % 9.6 % (1.7-12.7); Neutrophils % 76.8 % (38.7-73.9); Platelet Count 496 T/CUMM (130-400); Red Blood Count 3.32 MC/CUMM (3.8-5.5); Red Cell Distribution Width 15.5 % (9.3-17.3); White Blood Count 14.3 T/CUMM (4-12)
[2018-07-07 05:13] LABS: Calcium 9.2 MG/DL (8.5-10.1); Osmolality,Calculated 278.7 MOS/KG (273-304)
[2018-07-07 05:14] LABS: Calcium 9.2 MG/DL (8.5-10.1); Osmolality,Calculated 280.5 MOS/KG (273-304)
[2018-07-07 05:19] LABS: % Iron Saturation 17.5 % (18-50); Ferritin 898.5 ng/ml (8-252)
[2018-07-07 05:24] LABS: Folate 15.9 NG/ML (5.4-24.0); Vitamin B12 421 PG/ML (211-911)
[2018-07-07 06:26] LABS: Sedimentation Rate-Westergren 110 MM/HR (0-30)
[2018-07-07] MEDS: LEVOTHYROXINE 50 MCG TABLET PO SCH (06:40)
[2018-07-07] MEDS: POTASSIUM CHLORIDE 20 MEQ TABLET PO SCH (08:33)
[2018-07-07] MEDS: DIPYRIDAMOLE/ASPIRIN 200-25 MG CAPSULE PO SCH ×2 (08:33→20:54)
[2018-07-07] MEDS: MULTIVITAMIN (BEROCCA) TABLET PO SCH (08:33)
[2018-07-07] MEDS: PANTOPRAZOLE 40 MG TABLET PO SCH (08:33)
[2018-07-07] MEDS: PREGABALIN 75 MG CAPSULE PO SCH ×2 (08:33→20:54)
[2018-07-07] MEDS: busPIRone 10 MG TABLET PO SCH ×2 (08:33→20:54)
[2018-07-07] MEDS: INSULIN REGULAR 100 UNIT/ML SUBCUT SCH ×4 (08:33→20:54)
[2018-07-07] MEDS: CITALOPRAM 20 MG TABLET PO SCH (08:33)
[2018-07-07] MEDS: MONTELUKAST 10 MG TABLET PO SCH (08:34)
[2018-07-07] MEDS: tiZANidine 4 MG TABLET PO SCH ×2 (08:34→20:53)
[2018-07-07] MEDS: CHOLECALCIFEROL 1,000 UNIT TABLET PO SCH (08:34)
[2018-07-07] MEDS ORDERED: VANCOMYCIN INJ 1,250 MG in SODIUM CHLORIDE 0.9% 250 ML IV SCH (12:00)
[2018-07-07] MEDS: cefTRIAXone 2,000 MG in SODIUM CHLORIDE 0.9% 100 ML IV SCH (12:46)
[2018-07-07] MEDS: ISOSORBIDE MONONITRATE 20 MG TABLET PO SCH ×2 (12:47→20:54)
[2018-07-07] MEDS: METOPROLOL TARTRATE 25 MG TABLET PO SCH ×2 (12:47→20:54)
[2018-07-07] MEDS: amLODIPine 5 MG TABLET PO SCH (12:47)
[2018-07-07] MEDS ORDERED: BUPIVACAINE 0.5% 50 ML VIAL ONE (14:24)
[2018-07-07] MEDS ORDERED: BACITRACIN OINT 0.9 GM PACK TOP ONE (14:58)
[2018-07-07] MEDS ORDERED: MAGNESIUM HYDROXIDE SUSP 30 ML UDCUP PO PRN (15:31)
[2018-07-07] MEDS ORDERED: ONDANSETRON 4 MG/2 ML VIAL IV PRN (15:31)
[2018-07-07] MEDS ORDERED: SEVOFLURANE 1 UNIT/15 MINUTE INH ONE (15:52)
[2018-07-07] MEDS ORDERED: ONDANSETRON 4 MG/2 ML VIAL ONE (15:52)
[2018-07-07] MEDS ORDERED: fentaNYL 100 MCG/2 ML VIAL ONE (15:52)
[2018-07-07] MEDS ORDERED: MIDAZOLAM 2 MG/2 ML VIAL ONE (15:52)
[2018-07-07] MEDS ORDERED: KETOROLAC 30 MG/1 ML VIAL ONE (15:53)
[2018-07-07] MEDS ORDERED: PROPOFOL 200 MG/20 ML VIAL IV ONE (15:53)
[2018-07-07] MEDS ORDERED: ACETAMINOPHEN 1,000 MG/100 ML VIAL IV ONE (15:53)
[2018-07-07] MEDS ORDERED: PHENYLEPHRINE 1 MG/10 ML SYRINGE IV ONE (15:53)
[2018-07-07] MEDS: SODIUM CHLORIDE 0.9% 1,000 ML IV SCH ×2 (18:15)
[2018-07-07] MEDS: rOPINIRole 1 MG TABLET PO SCH (20:54)
[2018-07-07] MEDS: ROSUVASTATIN 20 MG TABLET PO SCH (20:54)
[2018-07-07] MEDS: INSULIN GLARGINE 100 UNIT/ML SUBCUT SCH (20:55)
[2018-07-08 04:57] LABS: Basophils % 0.2 % (0.0-0.8); Eosinophils # 0.1 10*3/uL (0.0-0.87); Eosinophils % 0.7 % (0.00-10.9); Hemoglobin 8.6 GM/DL (12.0-16.0); Immature Granulocytes % 1.3 %; Immature Granulocytes Absolute 0.16 #; Lymphocytes % 15.9 % (21.3-54.2); Mean Corpuscular HGB Conc 33.1 GM/DL (32-36); Mean Corpuscular Hemoglobin 29 PG (27-34); Mean Corpuscular Volume 86.4 FL (87-102); Mean Platelet Volume 9.2 FL (9.6-12.0); Monocytes # 1.1 10*3/uL (0.11-0.8); Monocytes % 8.9 % (1.7-12.7); Neutrophils # 9.1 10*3/uL (1.4-7.4); Platelet Count 504 T/CUMM (130-400); Red Blood Count 3.01 MC/CUMM (3.8-5.5); White Blood Count 12.5 T/CUMM (4-12)
[2018-07-08 05:15] LABS: Calcium 8.8 MG/DL (8.5-10.1); Osmolality,Calculated 279.3 MOS/KG (273-304); Potassium 2.8 MMOL/L (3.5-5.1)
[2018-07-08] MEDS: SODIUM CHLORIDE 0.9% 1,000 ML IV SCH (06:35)
[2018-07-08] MEDS: LEVOTHYROXINE 50 MCG TABLET PO SCH (06:35)
[2018-07-08] MEDS: HYDROmorphone 2 MG/1 ML VIAL IV PRN ×2 (07:14→17:22)
[2018-07-08] MEDS: INSULIN REGULAR 100 UNIT/ML SUBCUT SCH ×4 (07:51→21:38)
[2018-07-08] MEDS ORDERED: SKIN HEALING OINT (AQUAPHOR) 50 GM TUBE TOP PRN (10:01)
[2018-07-08] MEDS: ISOSORBIDE MONONITRATE 20 MG TABLET PO SCH ×2 (11:30→21:39)
[2018-07-08] MEDS: METOPROLOL TARTRATE 25 MG TABLET PO SCH ×2 (11:30→21:40)
[2018-07-08] MEDS: amLODIPine 5 MG TABLET PO SCH (11:30)
[2018-07-08] MEDS: cefTRIAXone 2,000 MG in SODIUM CHLORIDE 0.9% 100 ML IV SCH (11:45)
[2018-07-08] MEDS: MULTIVITAMIN (BEROCCA) TABLET PO SCH (11:46)
[2018-07-08] MEDS: busPIRone 10 MG TABLET PO SCH ×2 (11:47→21:40)
[2018-07-08] MEDS: PREGABALIN 75 MG CAPSULE PO SCH ×2 (11:47→21:41)
[2018-07-08] MEDS: MONTELUKAST 10 MG TABLET PO SCH (11:47)
[2018-07-08] MEDS: CITALOPRAM 20 MG TABLET PO SCH (11:47)
[2018-07-08] MEDS: PANTOPRAZOLE 40 MG TABLET PO SCH (11:48)
[2018-07-08] MEDS: CHOLECALCIFEROL 1,000 UNIT TABLET PO SCH (11:48)
[2018-07-08] MEDS: DIPYRIDAMOLE/ASPIRIN 200-25 MG CAPSULE PO SCH ×2 (11:49→21:41)
[2018-07-08] MEDS: tiZANidine 4 MG TABLET PO SCH ×2 (11:49→21:41)
[2018-07-08] MEDS: POTASSIUM CHLORIDE 20 MEQ TABLET PO SCH ×2 (11:50→21:40)
[2018-07-08] MEDS: FONDAPARINUX 2.5 MG/0.5 ML SYRINGE SUBCUT SCH (11:52)
[2018-07-08] MEDS: VANCOMYCIN INJ 1,250 MG in SODIUM CHLORIDE 0.9% 250 ML IV SCH ×2 (14:27→21:41)
[2018-07-08] MEDS: POTASSIUM CHLORIDE 20 MEQ TABLET PO PRN (17:20)
[2018-07-08] MEDS ORDERED: MAGNESIUM SULF RIDER 2 GM in PREMIX 1 EACH IV ONE (17:56)
[2018-07-08] MEDS ORDERED: INSULIN GLARGINE 100 UNIT/ML SUBCUT SCH (21:00)
[2018-07-08] MEDS: ROSUVASTATIN 20 MG TABLET PO SCH (21:39)
[2018-07-08] MEDS: rOPINIRole 1 MG TABLET PO SCH (21:40)
[2018-07-09] MEDS: SODIUM CHLORIDE 0.9% 1,000 ML IV SCH ×2 (02:55→12:04)
[2018-07-09 05:47] LABS: Basophils % 0.3 % (0.0-0.8); Eosinophils # 0.1 10*3/uL (0.0-0.87); Eosinophils % 0.6 % (0.00-10.9); Hematocrit 25.6 VOL% (35.7-47.0); Hemoglobin 8.4 GM/DL (12.0-16.0); Immature Granulocytes % 1.6 %; Immature Granulocytes Absolute 0.17 #; Lymphocytes # 1.9 10*3/uL (1.4-4.0); Lymphocytes % 17.6 % (21.3-54.2); Mean Corpuscular HGB Conc 32.8 GM/DL (32-36); Mean Corpuscular Hemoglobin 29 PG (27-34); Mean Corpuscular Volume 86.8 FL (87-102); Mean Platelet Volume 9.1 FL (9.6-12.0); Monocytes # 1.2 10*3/uL (0.11-0.8); Monocytes % 10.7 % (1.7-12.7); Neutrophils # 7.5 10*3/uL (1.4-7.4); Neutrophils % 69.2 % (38.7-73.9); Platelet Count 506 T/CUMM (130-400); Red Blood Count 2.95 MC/CUMM (3.8-5.5); Red Cell Distribution Width 15.8 % (9.3-17.3); White Blood Count 10.9 T/CUMM (4-12)
[2018-07-09] MEDS: LEVOTHYROXINE 50 MCG TABLET PO SCH (07:23)
[2018-07-09] MEDS ORDERED: POLYETHYLENE GLYCOL POWDER 255 GM BOTTLE PO ONE (10:11)
[2018-07-09] MEDS: MULTIVITAMIN (BEROCCA) TABLET PO SCH (10:24)
[2018-07-09] MEDS: DIPYRIDAMOLE/ASPIRIN 200-25 MG CAPSULE PO SCH ×2 (10:24→21:35)
[2018-07-09] MEDS: ISOSORBIDE MONONITRATE 20 MG TABLET PO SCH ×2 (10:25→21:35)
[2018-07-09] MEDS: busPIRone 10 MG TABLET PO SCH ×2 (10:25→21:35)
[2018-07-09] MEDS: POTASSIUM CHLORIDE 20 MEQ TABLET PO SCH ×2 (10:26→21:36)
[2018-07-09] MEDS: CITALOPRAM 20 MG TABLET PO SCH (10:27)
[2018-07-09] MEDS: PREGABALIN 75 MG CAPSULE PO SCH ×2 (10:27→21:36)
[2018-07-09] MEDS: MONTELUKAST 10 MG TABLET PO SCH (10:27)
[2018-07-09] MEDS: MAGNESIUM CHLORIDE 64 MG TABLET PO SCH (10:27)
[2018-07-09] MEDS: CHOLECALCIFEROL 1,000 UNIT TABLET PO SCH (10:28)
[2018-07-09] MEDS: tiZANidine 4 MG TABLET PO SCH ×2 (10:29→21:36)
[2018-07-09] MEDS: METOPROLOL TARTRATE 25 MG TABLET PO SCH ×2 (10:29→21:35)
[2018-07-09] MEDS: FONDAPARINUX 2.5 MG/0.5 ML SYRINGE SUBCUT SCH (10:29)
[2018-07-09] MEDS: amLODIPine 5 MG TABLET PO SCH (10:29)
[2018-07-09] MEDS: PANTOPRAZOLE 40 MG TABLET PO SCH (10:29)
[2018-07-09] MEDS: INSULIN REGULAR 100 UNIT/ML SUBCUT SCH ×4 (11:52→21:34)
[2018-07-09] MEDS: VANCOMYCIN INJ 1,250 MG in SODIUM CHLORIDE 0.9% 250 ML IV SCH ×2 (12:03→21:36)
[2018-07-09] MEDS: cefTRIAXone 2,000 MG in SODIUM CHLORIDE 0.9% 100 ML IV SCH (12:04)
[2018-07-09] MEDS: INSULIN LISPRO 100 UNIT/ML SUBCUT SCH (16:47)
[2018-07-09] MEDS: INSULIN GLARGINE 100 UNIT/ML SUBCUT SCH (21:34)
[2018-07-09] MEDS: rOPINIRole 1 MG TABLET PO SCH (21:35)
[2018-07-09] MEDS: ROSUVASTATIN 20 MG TABLET PO SCH (21:35)
[2018-07-10] MEDS: SODIUM CHLORIDE 0.9% 1,000 ML IV SCH ×2 (00:10→19:53)
[2018-07-10 05:48] LABS: Basophils # 0.1 10*3/uL (0.0-0.2); Basophils % 0.5 % (0.0-0.8); Eosinophils # 0.1 10*3/uL (0.0-0.87); Eosinophils % 1.2 % (0.00-10.9); Hematocrit 24.8 VOL% (35.7-47.0); Hemoglobin 7.7 GM/DL (12.0-16.0); Immature Granulocytes % 1.6 %; Immature Granulocytes Absolute 0.16 #; Lymphocytes # 2.4 10*3/uL (1.4-4.0); Lymphocytes % 24.1 % (21.3-54.2); Mean Corpuscular Hemoglobin 27 PG (27-34); Mean Corpuscular Volume 87.9 FL (87-102); Mean Platelet Volume 9.2 FL (9.6-12.0); Monocytes # 1.1 10*3/uL (0.11-0.8); Monocytes % 11.6 % (1.7-12.7); Platelet Count 470 T/CUMM (130-400); Red Blood Count 2.82 MC/CUMM (3.8-5.5); Red Cell Distribution Width 15.7 % (9.3-17.3); White Blood Count 9.8 T/CUMM (4-12)
[2018-07-10 06:13] LABS: Calcium 8.5 MG/DL (8.5-10.1); Osmolality,Calculated 279.7 MOS/KG (273-304); Potassium 3.8 MMOL/L (3.5-5.1)
[2018-07-10] MEDS: LEVOTHYROXINE 50 MCG TABLET PO SCH (06:29)
[2018-07-10] MEDS: MULTIVITAMIN (BEROCCA) TABLET PO SCH (09:33)
[2018-07-10] MEDS: MAGNESIUM CHLORIDE 64 MG TABLET PO SCH (09:33)
[2018-07-10] MEDS: PREGABALIN 75 MG CAPSULE PO SCH ×2 (09:34→21:32)
[2018-07-10] MEDS: amLODIPine 5 MG TABLET PO SCH (09:34)
[2018-07-10] MEDS: tiZANidine 4 MG TABLET PO SCH ×2 (09:34→21:32)
[2018-07-10] MEDS: busPIRone 10 MG TABLET PO SCH ×2 (09:34→21:32)
[2018-07-10] MEDS: CHOLECALCIFEROL 1,000 UNIT TABLET PO SCH (09:35)
[2018-07-10] MEDS: CITALOPRAM 20 MG TABLET PO SCH (09:35)
[2018-07-10] MEDS: PANTOPRAZOLE 40 MG TABLET PO SCH (09:35)
[2018-07-10] MEDS: MONTELUKAST 10 MG TABLET PO SCH (09:36)
[2018-07-10] MEDS: METOPROLOL TARTRATE 25 MG TABLET PO SCH ×2 (09:36→21:32)
[2018-07-10] MEDS: ISOSORBIDE MONONITRATE 20 MG TABLET PO SCH ×2 (09:36→21:32)
[2018-07-10] MEDS: DIPYRIDAMOLE/ASPIRIN 200-25 MG CAPSULE PO SCH ×2 (09:37→21:32)
[2018-07-10] MEDS: POTASSIUM CHLORIDE 20 MEQ TABLET PO SCH ×2 (09:37→21:32)
[2018-07-10] MEDS: INSULIN LISPRO 100 UNIT/ML SUBCUT SCH ×3 (09:38→16:16)
[2018-07-10] MEDS: FONDAPARINUX 2.5 MG/0.5 ML SYRINGE SUBCUT SCH (09:39)
[2018-07-10] MEDS: INSULIN REGULAR 100 UNIT/ML SUBCUT SCH ×4 (09:40→21:32)
[2018-07-10] MEDS: VANCOMYCIN INJ 1,250 MG in SODIUM CHLORIDE 0.9% 250 ML IV SCH (09:47)
[2018-07-10] MEDS ORDERED: SODIUM CHLORIDE 0.9% 1,000 ML IV PRN (11:55)
[2018-07-10] MEDS: cefTRIAXone 2,000 MG in SODIUM CHLORIDE 0.9% 100 ML IV SCH (13:39)
[2018-07-10] MEDS: rOPINIRole 1 MG TABLET PO SCH (21:32)
[2018-07-10] MEDS: INSULIN GLARGINE 100 UNIT/ML SUBCUT SCH (21:32)
[2018-07-10] MEDS: ROSUVASTATIN 20 MG TABLET PO SCH (21:32)
[2018-07-11] MEDS: SODIUM CHLORIDE 0.9% 1,000 ML IV SCH (02:17)
[2018-07-11 05:06] LABS: Calcium 8.8 MG/DL (8.5-10.1); Osmolality,Calculated 273.1 MOS/KG (273-304)
[2018-07-11] MEDS: LEVOTHYROXINE 50 MCG TABLET PO SCH (06:25)
[2018-07-11] MEDS ORDERED: INSULIN GLARGINE 100 UNIT/ML SUBCUT SCH (07:56)
[2018-07-11] MEDS: INSULIN REGULAR 100 UNIT/ML SUBCUT SCH ×4 (08:54→21:14)
[2018-07-11] MEDS: ISOSORBIDE MONONITRATE 20 MG TABLET PO SCH ×2 (08:55→21:14)
[2018-07-11] MEDS: INSULIN LISPRO 100 UNIT/ML SUBCUT SCH ×3 (08:55→16:22)
[2018-07-11] MEDS: MAGNESIUM CHLORIDE 64 MG TABLET PO SCH (08:56)
[2018-07-11] MEDS: busPIRone 10 MG TABLET PO SCH ×2 (08:56→21:14)
[2018-07-11] MEDS: amLODIPine 5 MG TABLET PO SCH (08:56)
[2018-07-11] MEDS: CITALOPRAM 20 MG TABLET PO SCH (08:56)
[2018-07-11] MEDS: MULTIVITAMIN (BEROCCA) TABLET PO SCH (08:56)
[2018-07-11] MEDS: METOPROLOL TARTRATE 25 MG TABLET PO SCH ×2 (08:56→21:14)
[2018-07-11] MEDS: MONTELUKAST 10 MG TABLET PO SCH (08:56)
[2018-07-11] MEDS: PANTOPRAZOLE 40 MG TABLET PO SCH (08:56)
[2018-07-11] MEDS: PREGABALIN 75 MG CAPSULE PO SCH ×2 (08:56→21:14)
[2018-07-11] MEDS: POTASSIUM CHLORIDE 20 MEQ TABLET PO SCH ×2 (08:57→21:14)
[2018-07-11] MEDS: DIPYRIDAMOLE/ASPIRIN 200-25 MG CAPSULE PO SCH ×2 (08:57→21:14)
[2018-07-11] MEDS: POLYETHYLENE GLYCOL POWDER 17 GM PACK PO SCH (12:00)
[2018-07-11] MEDS: CHOLECALCIFEROL 1,000 UNIT TABLET PO SCH (12:01)
[2018-07-11] MEDS: tiZANidine 4 MG TABLET PO SCH ×2 (12:01→21:14)
[2018-07-11] MEDS: DOCUSATE SODIUM 100 MG CAPSULE PO SCH ×2 (12:01→21:14)
[2018-07-11] MEDS: cefTRIAXone 2,000 MG in SODIUM CHLORIDE 0.9% 100 ML IV SCH (12:39)
[2018-07-11] MEDS: VANCOMYCIN INJ 1,250 MG in SODIUM CHLORIDE 0.9% 250 ML IV SCH (12:46)
[2018-07-11] MEDS: FONDAPARINUX 2.5 MG/0.5 ML SYRINGE SUBCUT SCH (16:25)
[2018-07-11] MEDS: ROSUVASTATIN 20 MG TABLET PO SCH (21:14)
[2018-07-11] MEDS: rOPINIRole 1 MG TABLET PO SCH (21:14)
[2018-07-12] MEDS: SODIUM CHLORIDE 0.9% 1,000 ML IV SCH ×2 (04:13→07:15)
[2018-07-12 04:43] LABS: Basophils # 0.1 10*3/uL (0.0-0.2); Basophils % 0.5 % (0.0-0.8); Eosinophils # 0.1 10*3/uL (0.0-0.87); Eosinophils % 0.9 % (0.00-10.9); Hematocrit 28.3 VOL% (35.7-47.0); Immature Granulocytes % 1.8 %; Immature Granulocytes Absolute 0.19 #; Lymphocytes # 2.6 10*3/uL (1.4-4.0); Lymphocytes % 24.4 % (21.3-54.2); Mean Corpuscular HGB Conc 31.8 GM/DL (32-36); Mean Corpuscular Hemoglobin 28 PG (27-34); Mean Corpuscular Volume 88.7 FL (87-102); Mean Platelet Volume 9.1 FL (9.6-12.0); Monocytes # 1.3 10*3/uL (0.11-0.8); Monocytes % 11.7 % (1.7-12.7); NRBC # 0.02 10*3/uL; Neutrophils # 6.6 10*3/uL (1.4-7.4); Neutrophils % 60.7 % (38.7-73.9); Platelet Count 473 T/CUMM (130-400); Red Blood Count 3.19 MC/CUMM (3.8-5.5); Red Cell Distribution Width 15.5 % (9.3-17.3); White Blood Count 10.8 T/CUMM (4-12)
[2018-07-12 05:13] LABS: Calcium 8.6 MG/DL (8.5-10.1); Osmolality,Calculated 281.8 MOS/KG (273-304); Potassium 4.3 MMOL/L (3.5-5.1)
[2018-07-12] MEDS: LEVOTHYROXINE 50 MCG TABLET PO SCH (06:35)
[2018-07-12] MEDS ORDERED: INSULIN GLARGINE 100 UNIT/ML SUBCUT SCH ×2 (07:24→13:08)
[2018-07-12] MEDS: INSULIN LISPRO 100 UNIT/ML SUBCUT SCH ×2 (08:07→11:51)
[2018-07-12] MEDS: INSULIN REGULAR 100 UNIT/ML SUBCUT SCH ×2 (08:07→11:51)
[2018-07-12] MEDS: FONDAPARINUX 2.5 MG/0.5 ML SYRINGE SUBCUT SCH (08:52)
[2018-07-12] MEDS: MONTELUKAST 10 MG TABLET PO SCH (08:54)
[2018-07-12] MEDS: ISOSORBIDE MONONITRATE 20 MG TABLET PO SCH (08:54)
[2018-07-12] MEDS: MULTIVITAMIN (BEROCCA) TABLET PO SCH (08:54)
[2018-07-12] MEDS: MAGNESIUM CHLORIDE 64 MG TABLET PO SCH (08:54)
[2018-07-12] MEDS: PREGABALIN 75 MG CAPSULE PO SCH (08:55)
[2018-07-12] MEDS: CHOLECALCIFEROL 1,000 UNIT TABLET PO SCH (08:55)
[2018-07-12] MEDS: tiZANidine 4 MG TABLET PO SCH (08:55)
[2018-07-12] MEDS: amLODIPine 5 MG TABLET PO SCH (08:55)
[2018-07-12] MEDS: DIPYRIDAMOLE/ASPIRIN 200-25 MG CAPSULE PO SCH (08:55)
[2018-07-12] MEDS: CITALOPRAM 20 MG TABLET PO SCH (08:55)
[2018-07-12] MEDS: busPIRone 10 MG TABLET PO SCH (08:55)
[2018-07-12] MEDS: DOCUSATE SODIUM 100 MG CAPSULE PO SCH (08:55)
[2018-07-12] MEDS: POLYETHYLENE GLYCOL POWDER 17 GM PACK PO SCH (08:55)
[2018-07-12] MEDS: METOPROLOL TARTRATE 25 MG TABLET PO SCH (08:55)
[2018-07-12] MEDS: PANTOPRAZOLE 40 MG TABLET PO SCH (08:55)
[2018-07-12] MEDS: POTASSIUM CHLORIDE 20 MEQ TABLET PO SCH (09:01)
[2018-07-12] MEDS: VANCOMYCIN INJ 1,250 MG in SODIUM CHLORIDE 0.9% 250 ML IV SCH (09:37)
[2018-07-12 11:22] VITALS: BP 86/47
[2018-07-12] MEDS ORDERED: INSULIN LISPRO 100 UNIT/ML SUBCUT SCH (13:08)
== END 2018-07-12 15:45 | disposition swing bed (61) | DRG 488 ==
LOC: N.ED 10:20 → N.EDINP 14:19 → N.3E 15:35
PROVIDERS: ADMIT Hospitalist; ATTEND Hospitalist

== ENCOUNTER 2019-04-16 11:31 | Inpatient (IN) ==
[2019-04-16] MEDS ORDERED: DEXTROSE 50% 25 GM/50 ML VIAL IV PRN (14:30)
[2019-04-16] MEDS ORDERED: PANTOPRAZOLE 40 MG TABLET PO SCH (14:30)
[2019-04-16] MEDS ORDERED: ENOXAPARIN 40 MG/0.4 ML SYRINGE SUBCUT SCH (14:30)
[2019-04-16] MEDS ORDERED: GLUCAGON 1 MG VIAL IM PRN (14:30)
[2019-04-16] MEDS ORDERED: NITROGLYCERIN SL 0.4 MG TABLET SL PRN (15:05)
[2019-04-16] MEDS: LACTATED RINGERS 1,000 ML IV SCH (15:08)
[2019-04-16] MEDS ORDERED: MAGNESIUM SULF RIDER 2 GM in PREMIX 1 EACH IV ONE (15:14)
[2019-04-16] MEDS ORDERED: NIFEdipine 10 MG CAPSULE PO PRN (15:16)
[2019-04-16] MEDS: amLODIPine 2.5 MG TABLET PO SCH (15:44)
[2019-04-16] MEDS: ENALAPRIL 2.5 MG/2 ML VIAL IV SCH ×2 (15:45→21:04)
[2019-04-16] MEDS: PANTOPRAZOLE 40 MG VIAL IV SCH ×2 (15:46→21:04)
[2019-04-16] MEDS: ONDANSETRON 4 MG/2 ML VIAL IV PRN ×2 (16:08→20:49)
[2019-04-16] MEDS: PROMETHAZINE INJ 25 MG in SODIUM CHLORIDE 0.9% 50 ML IV PRN (16:57)
[2019-04-16] MEDS ORDERED: INSULIN LISPRO 100 UNIT/ML SUBCUT SCH (18:00)
[2019-04-16] MEDS: INSULIN LISPRO 100 UNIT/ML SUBCUT SCH ×2 (18:28→22:04)
[2019-04-16] MEDS ORDERED: ZALEPLON 5 MG CAPSULE PO ONE (20:45)
[2019-04-16] MEDS: DIPYRIDAMOLE/ASPIRIN 200-25 MG CAPSULE PO SCH (20:49)
[2019-04-16] MEDS ORDERED: INSULIN GLARGINE 100 UNIT/ML SUBCUT SCH (21:00)
[2019-04-16] MEDS: MORPHINE NALTREXONE PO SCH (21:03)
[2019-04-16] MEDS: METOPROLOL TARTRATE 25 MG TABLET PO SCH (21:03)
[2019-04-17] MEDS: PROMETHAZINE INJ 25 MG in SODIUM CHLORIDE 0.9% 50 ML IV PRN (00:30)
[2019-04-17] MEDS: LACTATED RINGERS 1,000 ML IV SCH ×4 (00:30→22:11)
[2019-04-17] MEDS: INSULIN LISPRO 100 UNIT/ML SUBCUT SCH ×6 (01:45→22:10)
[2019-04-17] MEDS: ONDANSETRON 4 MG/2 ML VIAL IV PRN (01:50)
[2019-04-17] MEDS ORDERED: ONDANSETRON 4 MG/2 ML VIAL IV ONE (02:35)
[2019-04-17] MEDS ORDERED: chlorproMAZINE INJ 25 MG in SODIUM CHLORIDE 0.9% 100 ML IV ONE (03:15)
[2019-04-17] MEDS: ENALAPRIL 2.5 MG/2 ML VIAL IV SCH ×4 (03:55→20:50)
[2019-04-17 04:36] LABS: Basophils % 0.3 % (0.0-0.8); Hematocrit 43.5 VOL% (35.7-47.0); Hemoglobin 14.3 GM/DL (12.0-16.0); Immature Granulocytes % 0.5 %; Immature Granulocytes Absolute 0.07 #; Lymphocytes % 14.9 % (21.3-54.2); Mean Corpuscular HGB Conc 32.9 GM/DL (32-36); Mean Corpuscular Volume 86.1 FL (87-102); Mean Platelet Volume 11.2 FL (9.6-12.0); Monocytes % 10.5 % (1.7-12.7); Neutrophils % 73.8 % (38.7-73.9); Platelet Count 202 T/CUMM (130-400); Red Blood Count 5.05 MC/CUMM (3.8-5.5); Red Cell Distribution Width 14.2 % (9.3-17.3); White Blood Count 13.2 T/CUMM (4-12)
[2019-04-17 04:59] LABS: Calcium 9.1 MG/DL (8.5-10.1); Osmolality,Calculated 298.8 MOS/KG (273-304)
[2019-04-17] MEDS: DIPYRIDAMOLE/ASPIRIN 200-25 MG CAPSULE PO SCH (08:28)
[2019-04-17] MEDS: MORPHINE NALTREXONE PO SCH ×2 (08:28→20:51)
[2019-04-17] MEDS: amLODIPine 2.5 MG TABLET PO SCH (08:49)
[2019-04-17] MEDS: LEVOTHYROXINE 50 MCG TABLET PO SCH (08:49)
[2019-04-17] MEDS: CITALOPRAM 20 MG TABLET PO SCH (08:49)
[2019-04-17] MEDS: PANTOPRAZOLE 40 MG VIAL IV SCH ×2 (08:51→20:50)
[2019-04-17] MEDS: METOPROLOL TARTRATE 25 MG TABLET PO SCH ×2 (08:51→20:49)
[2019-04-17] MEDS: POTASSIUM CHLORIDE RIDER 10 MEQ in PREMIX 1 EACH IV SCH ×6 (10:21→23:08)
[2019-04-17] MEDS ORDERED: amLODIPine 2.5 MG TABLET PO ONE (11:32)
[2019-04-17] MEDS: INSULIN GLARGINE 100 UNIT/ML SUBCUT SCH (12:13)
[2019-04-17] MEDS: ALUMINUM/MAGNES/SIMETH MAX STR 30 ML UDCUP PO PRN (18:28)
[2019-04-17] MEDS ORDERED: ACETAMINOPHEN 325 MG TABLET PO PRN (20:05)
[2019-04-18] MEDS: POTASSIUM CHLORIDE RIDER 10 MEQ in PREMIX 1 EACH IV SCH ×2 (00:10→01:05)
[2019-04-18] MEDS: INSULIN LISPRO 100 UNIT/ML SUBCUT SCH ×6 (01:59→22:25)
[2019-04-18] MEDS: LACTATED RINGERS 1,000 ML IV SCH ×4 (02:11→22:16)
[2019-04-18 04:25] LABS: Basophils % 0.3 % (0.0-0.8); Eosinophils % 0.2 % (0.00-10.9); Hematocrit 43.9 VOL% (35.7-47.0); Hemoglobin 14.3 GM/DL (12.0-16.0); Immature Granulocytes % 0.5 %; Immature Granulocytes Absolute 0.06 #; Lymphocytes # 2.8 10*3/uL (1.4-4.0); Lymphocytes % 23.4 % (21.3-54.2); Mean Corpuscular HGB Conc 32.6 GM/DL (32-36); Mean Corpuscular Volume 86.1 FL (87-102); Mean Platelet Volume 9.7 FL (9.6-12.0); Monocytes % 11.1 % (1.7-12.7); Neutrophils % 64.5 % (38.7-73.9); Platelet Count 256 T/CUMM (130-400); Red Cell Distribution Width 13.6 % (9.3-17.3); White Blood Count 11.9 T/CUMM (4-12)
[2019-04-18 04:26] LABS: Calcium 8.6 MG/DL (8.5-10.1); Osmolality,Calculated 285.4 MOS/KG (273-304)
[2019-04-18] MEDS: ENALAPRIL 2.5 MG/2 ML VIAL IV SCH ×4 (04:59→21:01)
[2019-04-18] MEDS: ONDANSETRON 4 MG/2 ML VIAL IV PRN ×2 (04:59→10:21)
[2019-04-18] MEDS ORDERED: LABETALOL 20 MG/4 ML SYRINGE IV ONE (06:14)
[2019-04-18] MEDS: PROMETHAZINE INJ 25 MG in SODIUM CHLORIDE 0.9% 50 ML IV PRN (07:27)
[2019-04-18] MEDS: amLODIPine 5 MG TABLET PO SCH (08:24)
[2019-04-18] MEDS: METOPROLOL TARTRATE 25 MG TABLET PO SCH ×2 (08:25→21:01)
[2019-04-18] MEDS: PANTOPRAZOLE 40 MG VIAL IV SCH ×2 (08:26→21:00)
[2019-04-18] MEDS: MORPHINE NALTREXONE PO SCH ×2 (08:26→22:17)
[2019-04-18] MEDS: INSULIN GLARGINE 100 UNIT/ML SUBCUT SCH (08:26)
[2019-04-18] MEDS: CITALOPRAM 20 MG TABLET PO SCH (08:26)
[2019-04-18] MEDS: LEVOTHYROXINE 50 MCG TABLET PO SCH (08:26)
[2019-04-18] MEDS ORDERED: PROPOFOL 200 MG/20 ML VIAL IV ONE (09:00)
[2019-04-18] MEDS ORDERED: LIDOCAINE 2% 5 ML VIAL ONE (09:00)
[2019-04-18] MEDS ORDERED: ONDANSETRON 4 MG/2 ML VIAL ONE (10:19)
[2019-04-19] MEDS: INSULIN LISPRO 100 UNIT/ML SUBCUT SCH ×6 (02:51→23:28)
[2019-04-19] MEDS: ENALAPRIL 2.5 MG/2 ML VIAL IV SCH (03:32)
[2019-04-19 05:40] LABS: Basophils % 0.4 % (0.0-0.8); Eosinophils % 0.3 % (0.00-10.9); Hematocrit 43.3 VOL% (35.7-47.0); Hemoglobin 14.4 GM/DL (12.0-16.0); Immature Granulocytes % 0.3 %; Immature Granulocytes Absolute 0.03 #; Lymphocytes # 2.7 10*3/uL (1.4-4.0); Lymphocytes % 26.1 % (21.3-54.2); Mean Corpuscular HGB Conc 33.3 GM/DL (32-36); Mean Corpuscular Volume 85.1 FL (87-102); Mean Platelet Volume 9.8 FL (9.6-12.0); Monocytes % 10.4 % (1.7-12.7); Neutrophils % 62.5 % (38.7-73.9); Platelet Count 255 T/CUMM (130-400); Red Blood Count 5.09 MC/CUMM (3.8-5.5); Red Cell Distribution Width 13.4 % (9.3-17.3); White Blood Count 10.2 T/CUMM (4-12)
[2019-04-19 05:55] LABS: Calcium 8.6 MG/DL (8.5-10.1); Osmolality,Calculated 284.4 MOS/KG (273-304)
[2019-04-19] MEDS: CITALOPRAM 20 MG TABLET PO SCH (08:14)
[2019-04-19] MEDS: LEVOTHYROXINE 50 MCG TABLET PO SCH (08:14)
[2019-04-19] MEDS: INSULIN GLARGINE 100 UNIT/ML SUBCUT SCH (08:15)
[2019-04-19] MEDS: METOPROLOL TARTRATE 25 MG TABLET PO SCH ×2 (08:15→21:35)
[2019-04-19] MEDS: amLODIPine 5 MG TABLET PO SCH (08:15)
[2019-04-19] MEDS: LACTATED RINGERS 1,000 ML IV SCH (08:15)
[2019-04-19] MEDS: PANTOPRAZOLE 40 MG VIAL IV SCH (08:16)
[2019-04-19] MEDS ORDERED: POTASSIUM CHLORIDE RIDER 10 MEQ in PREMIX 1 EACH IV PRN ×2 (08:51→10:20)
[2019-04-19] MEDS ORDERED: POTASSIUM CHLORIDE 20 MEQ TABLET PO PRN (08:51)
[2019-04-19] MEDS ORDERED: MAGNESIUM SULF IV ONE (09:30)
[2019-04-19] MEDS ORDERED: [UNRECOGNIZED DRUG - OTHER] IV ONE (09:30)
[2019-04-19] MEDS ORDERED: POTASSIUM CHLORIDE IV ONE (09:30)
[2019-04-19] MEDS: ONDANSETRON 4 MG/2 ML VIAL IV PRN ×2 (10:11→14:02)
[2019-04-19] MEDS: PANTOPRAZOLE 40 MG TABLET PO SCH (10:12)
[2019-04-19] MEDS: MORPHINE NALTREXONE PO SCH ×2 (10:14→22:10)
[2019-04-19] MEDS: LISINOPRIL 10 MG TABLET PO SCH (10:14)
[2019-04-19] MEDS: METOCLOPRAMIDE 10 MG/2 ML VIAL IV SCH (21:35)
[2019-04-20] MEDS: LACTATED RINGERS 1,000 ML IV SCH ×3 (00:23→22:34)
[2019-04-20] MEDS: INSULIN LISPRO 100 UNIT/ML SUBCUT SCH ×6 (02:30→22:03)
[2019-04-20 06:05] LABS: Basophils % 0.5 % (0.0-0.8); Eosinophils # 0.1 10*3/uL (0.0-0.87); Eosinophils % 1.4 % (0.00-10.9); Hematocrit 42.7 VOL% (35.7-47.0); Immature Granulocytes % 0.6 %; Immature Granulocytes Absolute 0.05 #; Lymphocytes % 34.5 % (21.3-54.2); Mean Corpuscular HGB Conc 32.8 GM/DL (32-36); Mean Corpuscular Volume 86.6 FL (87-102); Mean Platelet Volume 9.4 FL (9.6-12.0); Monocytes % 10.5 % (1.7-12.7); Neutrophils % 52.5 % (38.7-73.9); Platelet Count 206 T/CUMM (130-400); Red Blood Count 4.93 MC/CUMM (3.8-5.5); Red Cell Distribution Width 13.9 % (9.3-17.3); White Blood Count 8.6 T/CUMM (4-12)
[2019-04-20 06:34] LABS: Calcium 8.5 MG/DL (8.5-10.1); Osmolality,Calculated 285.3 MOS/KG (273-304)
[2019-04-20] MEDS: LISINOPRIL 10 MG TABLET PO SCH (09:44)
[2019-04-20] MEDS: CITALOPRAM 20 MG TABLET PO SCH (09:45)
[2019-04-20] MEDS: LEVOTHYROXINE 50 MCG TABLET PO SCH (09:45)
[2019-04-20] MEDS: PANTOPRAZOLE 40 MG TABLET PO SCH (09:45)
[2019-04-20] MEDS: METOPROLOL TARTRATE 25 MG TABLET PO SCH ×2 (09:45→21:05)
[2019-04-20] MEDS: amLODIPine 5 MG TABLET PO SCH (09:45)
[2019-04-20] MEDS: INSULIN GLARGINE 100 UNIT/ML SUBCUT SCH (09:45)
[2019-04-20] MEDS: METOCLOPRAMIDE 10 MG/2 ML VIAL IV SCH ×3 (09:46→21:05)
[2019-04-20] MEDS: MORPHINE NALTREXONE PO SCH ×2 (11:17→21:06)
[2019-04-20] MEDS: ALUMINUM/MAGNES/SIMETH MAX STR 30 ML UDCUP PO PRN (11:33)
[2019-04-20] MEDS: ONDANSETRON 4 MG/2 ML VIAL IV PRN (11:35)
[2019-04-21] MEDS: INSULIN LISPRO 100 UNIT/ML SUBCUT SCH ×6 (02:54→21:35)
[2019-04-21] MEDS: METOCLOPRAMIDE 10 MG/2 ML VIAL IV SCH ×4 (04:38→21:00)
[2019-04-21 04:52] LABS: Basophils % 0.4 % (0.0-0.8); Eosinophils # 0.1 10*3/uL (0.0-0.87); Eosinophils % 1.4 % (0.00-10.9); Hematocrit 39.9 VOL% (35.7-47.0); Hemoglobin 13.4 GM/DL (12.0-16.0); Immature Granulocytes % 0.6 %; Immature Granulocytes Absolute 0.06 #; Lymphocytes # 2.9 10*3/uL (1.4-4.0); Lymphocytes % 28.9 % (21.3-54.2); Mean Corpuscular HGB Conc 33.6 GM/DL (32-36); Mean Corpuscular Volume 85.6 FL (87-102); Monocytes % 9.1 % (1.7-12.7); Neutrophils % 59.6 % (38.7-73.9); Platelet Count 203 T/CUMM (130-400); Red Blood Count 4.66 MC/CUMM (3.8-5.5); Red Cell Distribution Width 13.7 % (9.3-17.3)
[2019-04-21 05:20] LABS: Calcium 8.3 MG/DL (8.5-10.1); Osmolality,Calculated 280.4 MOS/KG (273-304)
[2019-04-21] MEDS ORDERED: MAGNESIUM CHLORIDE 64 MG TABLET PO ONE (09:00)
[2019-04-21] MEDS ORDERED: POTASSIUM CHLORIDE 20 MEQ TABLET PO ONE ×2 (09:00→12:00)
[2019-04-21] MEDS: INSULIN GLARGINE 100 UNIT/ML SUBCUT SCH (09:37)
[2019-04-21] MEDS: amLODIPine 5 MG TABLET PO SCH (09:38)
[2019-04-21] MEDS: LEVOTHYROXINE 50 MCG TABLET PO SCH (09:38)
[2019-04-21] MEDS: PANTOPRAZOLE 40 MG TABLET PO SCH (09:38)
[2019-04-21] MEDS: METOPROLOL TARTRATE 25 MG TABLET PO SCH ×2 (09:38→20:59)
[2019-04-21] MEDS: LISINOPRIL 10 MG TABLET PO SCH (09:38)
[2019-04-21] MEDS: CITALOPRAM 20 MG TABLET PO SCH (09:38)
[2019-04-21] MEDS: LACTATED RINGERS 1,000 ML IV SCH ×4 (09:43→21:04)
[2019-04-21] MEDS: MORPHINE NALTREXONE PO SCH (12:13)
[2019-04-21] MEDS: ONDANSETRON 4 MG/2 ML VIAL IV PRN (12:18)
[2019-04-21] MEDS ORDERED: ONDANSETRON 4 MG/2 ML VIAL IV ONE (22:31)
[2019-04-22] MEDS: INSULIN LISPRO 100 UNIT/ML SUBCUT SCH ×4 (00:40→18:32)
[2019-04-22] MEDS: METOCLOPRAMIDE 10 MG/2 ML VIAL IV SCH ×4 (02:11→21:02)
[2019-04-22] MEDS: LACTATED RINGERS 1,000 ML IV SCH ×2 (06:07→18:30)
[2019-04-22 08:06] LABS: Basophils % 0.2 % (0.0-0.8); Eosinophils # 0.1 10*3/uL (0.0-0.87); Eosinophils % 1.2 % (0.00-10.9); Hematocrit 38.2 VOL% (35.7-47.0); Hemoglobin 12.7 GM/DL (12.0-16.0); Immature Granulocytes % 0.4 %; Immature Granulocytes Absolute 0.03 #; Lymphocytes # 2.9 10*3/uL (1.4-4.0); Lymphocytes % 36.2 % (21.3-54.2); Mean Corpuscular HGB Conc 33.2 GM/DL (32-36); Mean Corpuscular Volume 86.4 FL (87-102); Mean Platelet Volume 10.5 FL (9.6-12.0); Monocytes % 10.8 % (1.7-12.7); Neutrophils % 51.2 % (38.7-73.9); Platelet Count 188 T/CUMM (130-400); Red Blood Count 4.42 MC/CUMM (3.8-5.5); Red Cell Distribution Width 13.9 % (9.3-17.3); White Blood Count 8.1 T/CUMM (4-12)
[2019-04-22] MEDS: INSULIN GLARGINE 100 UNIT/ML SUBCUT SCH (08:25)
[2019-04-22] MEDS: ONDANSETRON 4 MG/2 ML VIAL IV PRN (08:26)
[2019-04-22] MEDS: CITALOPRAM 20 MG TABLET PO SCH (08:27)
[2019-04-22] MEDS: amLODIPine 5 MG TABLET PO SCH (08:27)
[2019-04-22] MEDS: LEVOTHYROXINE 50 MCG TABLET PO SCH (08:27)
[2019-04-22] MEDS: PANTOPRAZOLE 40 MG TABLET PO SCH (08:27)
[2019-04-22] MEDS: METOPROLOL TARTRATE 25 MG TABLET PO SCH ×2 (08:27→21:02)
[2019-04-22] MEDS: LISINOPRIL 10 MG TABLET PO SCH (08:27)
[2019-04-22 08:29] LABS: Calcium 8.3 MG/DL (8.5-10.1); Osmolality,Calculated 281.4 MOS/KG (273-304)
[2019-04-22] MEDS: POTASSIUM CHLORIDE 20 MEQ TABLET PO PRN ×4 (10:38→21:02)
[2019-04-23] MEDS: INSULIN LISPRO 100 UNIT/ML SUBCUT SCH ×4 (01:10→18:46)
[2019-04-23] MEDS: LACTATED RINGERS 1,000 ML IV SCH (01:12)
[2019-04-23] MEDS: METOCLOPRAMIDE 10 MG/2 ML VIAL IV SCH ×4 (02:03→20:45)
[2019-04-23 05:21] LABS: Basophils # 0.1 10*3/uL (0.0-0.2); Basophils % 0.5 % (0.0-0.8); Eosinophils # 0.2 10*3/uL (0.0-0.87); Eosinophils % 1.6 % (0.00-10.9); Hematocrit 39.2 VOL% (35.7-47.0); Immature Granulocytes % 0.5 %; Immature Granulocytes Absolute 0.05 #; Lymphocytes % 42.6 % (21.3-54.2); Mean Corpuscular HGB Conc 33.2 GM/DL (32-36); Mean Corpuscular Volume 86.9 FL (87-102); Mean Platelet Volume 10.7 FL (9.6-12.0); Monocytes % 11.2 % (1.7-12.7); Neutrophils % 43.6 % (38.7-73.9); Platelet Count 205 T/CUMM (130-400); Red Blood Count 4.51 MC/CUMM (3.8-5.5); Red Cell Distribution Width 13.7 % (9.3-17.3); White Blood Count 9.3 T/CUMM (4-12)
[2019-04-23 05:39] LABS: Osmolality,Calculated 283.3 MOS/KG (273-304)
[2019-04-23] MEDS ORDERED: MAGNESIUM SULF RIDER 2 GM in PREMIX 1 EACH IV PRN (07:03)
[2019-04-23] MEDS ORDERED: MAGNESIUM SULF RIDER 4 GM in PREMIX 1 EACH IV PRN (07:03)
[2019-04-23] MEDS: LISINOPRIL 10 MG TABLET PO SCH (08:45)
[2019-04-23] MEDS: INSULIN GLARGINE 100 UNIT/ML SUBCUT SCH (08:45)
[2019-04-23] MEDS: LEVOTHYROXINE 50 MCG TABLET PO SCH (08:45)
[2019-04-23] MEDS: PANTOPRAZOLE 40 MG TABLET PO SCH ×2 (08:46→20:45)
[2019-04-23] MEDS: METOPROLOL TARTRATE 25 MG TABLET PO SCH ×2 (08:46→20:45)
[2019-04-23] MEDS: amLODIPine 5 MG TABLET PO SCH (08:46)
[2019-04-23] MEDS: CITALOPRAM 20 MG TABLET PO SCH (08:46)
[2019-04-24] MEDS: INSULIN LISPRO 100 UNIT/ML SUBCUT SCH ×3 (00:59→11:40)
[2019-04-24] MEDS: METOCLOPRAMIDE 10 MG/2 ML VIAL IV SCH ×2 (02:43→08:42)
[2019-04-24 05:53] LABS: Basophils # 0.1 10*3/uL (0.0-0.2); Basophils % 0.5 % (0.0-0.8); Eosinophils # 0.3 10*3/uL (0.0-0.87); Eosinophils % 2.7 % (0.00-10.9); Hematocrit 38.3 VOL% (35.7-47.0); Hemoglobin 12.9 GM/DL (12.0-16.0); Immature Granulocytes % 0.7 %; Immature Granulocytes Absolute 0.07 #; Lymphocytes # 4.5 10*3/uL (1.4-4.0); Lymphocytes % 44.6 % (21.3-54.2); Mean Corpuscular HGB Conc 33.7 GM/DL (32-36); Mean Corpuscular Volume 86.8 FL (87-102); Mean Platelet Volume 10.7 FL (9.6-12.0); Monocytes % 10.3 % (1.7-12.7); Neutrophils % 41.2 % (38.7-73.9); Platelet Count 222 T/CUMM (130-400); Red Blood Count 4.41 MC/CUMM (3.8-5.5); Red Cell Distribution Width 13.8 % (9.3-17.3); White Blood Count 10.1 T/CUMM (4-12)
[2019-04-24 06:16] LABS: Calcium 8.7 MG/DL (8.5-10.1); Osmolality,Calculated 284.5 MOS/KG (273-304)
[2019-04-24] MEDS: PANTOPRAZOLE 40 MG TABLET PO SCH (08:43)
[2019-04-24] MEDS: amLODIPine 5 MG TABLET PO SCH (08:43)
[2019-04-24] MEDS: INSULIN GLARGINE 100 UNIT/ML SUBCUT SCH (08:43)
[2019-04-24] MEDS: LISINOPRIL 10 MG TABLET PO SCH (08:43)
[2019-04-24] MEDS: LEVOTHYROXINE 50 MCG TABLET PO SCH (08:43)
[2019-04-24] MEDS: METOPROLOL TARTRATE 25 MG TABLET PO SCH (08:43)
[2019-04-24] MEDS: CITALOPRAM 20 MG TABLET PO SCH (08:43)
[2019-04-24 11:49] VITALS: BP 134/66
== END 2019-04-24 13:05 | disposition home health service (06) | DRG 378 ==
LOC: N.CC 13:09 → SUATTDRO 13:09 → N.2E 04-18 16:08
PROVIDERS: ADMIT Internal Medicine; ATTEND Internal Medicine